=== PATIENT | female | born 1950 | race Caucasian/White ===

== ENCOUNTER → 2018-07-19 09:24 | Outpatient (CLI) | payer MEDICARE, OTHER, SELFPAY | PROVIDERS: Visit Provider Student in an Organized Health Care Education/Training Program | DX: E07.9 Disorder of thyroid, unspecified (principal); Z78.0 Asymptomatic menopausal state | CPT/HCPCS: 77080 ==

== ENCOUNTER → 2018-10-23 09:50 | Outpatient (CLI) | payer MEDICARE, OTHER, SELFPAY ==
--- NOTE | 2018-10-23 | DI.US.S_ITS ---
PROCEDURE: US THYROID INDICATIONS: NODULE TECHNIQUE: Real-time scanning was performed of the thyroid gland, with image documentation. COMPARISON: [facility], [place], BIOPSY LOCALIZATION/ASPIRATION, 02/08/2016, 13:00. [facility], [place], THYROID, 01/04/2016, 14:09. FINDINGS: Thyroid appears diffusely heterogeneous Right: Thyroid lobe measures 3.6 x 1.5 x 1.6 cm, and is homogeneous in echotexture. Left: Thyroid lobe measures 4.1 x 1.1 0.6 cm, and is homogenous in echotexture. Isthmus: 3-4 mm thick. Nodule number: 1 Location: Inferior left lobe Size: 1.4 x 1.2 x 1.6 cm. (previously 3.0 x 2.1 x 1.0 cm) Composition: Predominantly solid Echogenicity: Hypoechoic Shape: wider than tall. Margins: Ill-defined Echogenic foci: None Total points: 4 ACR TI-RADS category: Moderately suspicious IMPRESSION: Decrease in size of previously sampled inferior left lobe thyroid nodule since 02/08/16. Diffusely heterogeneous thyroid raising the possibility of nonspecific thyroiditis. Please correlate with biochemical data. ACR TI-RADS definitions and recommendations: TI-RADS 1 (benign): 0 points. FNA not needed. TI-RADS 2 (not suspicious): 2 points. FNA not needed. TI-RADS 3 (mildly suspicious): 3 points. * FNA if 2.5 cm or larger, follow up if 1.5 cm or larger (at 1, 3, and 5 years). TI-RADS 4 (moderately suspicious): 4-6 points. * FNA if 1.5 cm or larger, follow up if 1 cm or larger (at 1, 2, 3, and 5 years). TI-RADS 5 (highly suspicious): 7 points or more. * FNA if 1 cm or larger, follow up if 0.5 cm or larger (every year for 5 years). Dictated by: Ethan Guevara M.D. on 10/23/2018 at 17:55 Approved by: Ethan Guevara M.D. on 10/23/2018 at 17:58
== END ==
PROVIDERS: PCP Student in an Organized Health Care Education/Training Program; Visit Provider Student in an Organized Health Care Education/Training Program
DX: E04.1 Nontoxic single thyroid nodule (principal)
CPT/HCPCS: 76536

== ENCOUNTER → 2018-11-26 15:29 | Outpatient (CLI) | payer MEDICARE, OTHER, SELFPAY ==
--- NOTE | 2018-11-26 | DI.MRI.S_ITS ---
PROCEDURE: MR ABDOME PELVIS WWO CON INDICATIONS: PELVIC MASS ON CT-ANGIO DONE AT [facility] TECHNIQUE: Coronal HASTE, sagittal breath-hold T2 FSE; axial 2-D FLASH in- and [id number], axial T1 FSE with fat saturation through the pelvis. Optional long- and short-axis uterine nonbreath-hold T2 FSE through the uterus. Sagittal or axial dynamic VIBE during IV gadolinium administration; postgadolinium axial and sagittal VIBE/2-D FLASH with fat saturation from the iliac crests to the symphysis. COMPARISON: [facility], CT, CT ANGIO CHEST, 10/10/2018, 10:31. [facility] , CT, KUB - CT (PNL), 07/29/2009, 7:11. [facility], CT, CT ANGIO ABDOMEN PELVIS, 11/02/2018, 14:23. FINDINGS: Image quality: Excellent. Uterus: Uterus is surgically absent. Adnexa: A uniloculated, thin-walled, cystic lesion measuring 2.0 x 1.6 x 1.8 cm is present in the right posterior hemipelvis along the internal iliac vasculature. It demonstrates homogeneous hypointense T1, and hyperintense T2 signal, and there is no detectable enhancement. In the left posterior adnexa, there is a multiloculated cystic mass demonstrating similar internal signal characteristics, demonstrating trace enhancement of cyst heard postcontrast. No mural nodularity or solid component. It measures about 5.4 x 2.6 x 3.4 cm in its greatest diameters. No suspicious enhancing adenopathy or solid enhancing pelvic masses. No free pelvic fluid. Urinary system: The urinary bladder is normal with respect wall thickness and morphology. No enhancing masses. Distal ureters are nondilated. Abdomen: The liver is normal in size with a smooth margin, and contains multiple, widely scattered cystic structures ranging in size from a few millimeters to 3.4 cm. Hemangioma or portosystemic shunt is seen peripherally in the lateral right hepatic lobe. Tiny cysts present in the cranial and caudal tips of the spleen and in each kidney. Normal adrenal glands, pancreas, and kidneys. Retroperitoneal vessels and ureters are normal. No retroperitoneal mass or adenopathy. Mild sigmoid diverticulosis. Stomach and visible bowel loops are normal. Bones and soft tissues: The visible marrow signal is normal without suspicious enhancing lesion. Incidental note is made of slightly rounded, prominent nodule/lymph node in the right low axilla or right breast axillary tail tissue measuring about 1.2 cm in short axis. (Series 32 image 26). IMPRESSION: 1. Bilateral posterior adnexal cystic masses. No overtly suspicious features other than these have arisen since the prior study from 2008. The left may be associated with residual left ovarian tissue. The right is more cranial in the pelvis than expected for right ovarian tissue. The differential diagnosis includes residual ovarian follicles, benign ovarian serous cystadenoma, pelvic inclusion cyst, lymphoceles, and much less likely neoplasm. Followup in 6 months is recommended to document stability or assess for resolution. 2. Lower axillary/right breast axillary tail nodule/lymph node, minimally increased in size compared to a prior chest CT. And this may be reactive to an occult infectious process. Clinical correlation recommended. Consider mammogram if not recently performed. 3. Multiple liver, renal, and splenic cysts. 4. Hysterectomy. Dictated by: Yamilet Ahmadi M.D. on 11/27/2018 at 9:51 Approved by: Yamilet Ahmadi M.D. on 11/27/2018 at 11:03
== END ==
PROVIDERS: PCP Student in an Organized Health Care Education/Training Program; Visit Provider Student in an Organized Health Care Education/Training Program
DX: R19.09 Other intra-abdominal and pelvic swelling, mass and lump (principal); R59.0 Localized enlarged lymph nodes; K76.89 Other specified diseases of liver; N28.1 Cyst of kidney, acquired; D73.4 Cyst of spleen; Z90.710 Acquired absence of both cervix and uterus
CPT/HCPCS: 72197; A9579

== ENCOUNTER → 2018-12-13 13:52 | Outpatient (CLI) | payer MEDICARE, OTHER, SELFPAY ==
--- NOTE | 2018-12-13 | DI.MG.S_ITS ---
BILATERAL DIGITAL DIAGNOSTIC MAMMOGRAM 3D/2D: 12/13/2018 CLINICAL: Finding from recent MRI exam. Left and right axillary tail nodule. Comparison is made to exams dated: 03/19/2018 mammogram, 02/17/2017 mammogram, and 11/24/2015 mammogram - [facility]. The tissue of both breasts is heterogeneously dense. This may lower the sensitivity of mammography. No significant masses, calcifications, or other findings are seen in either breast. IMPRESSION: INCOMPLETE: NEEDS ADDITIONAL IMAGING EVALUATION There is no abnormality seen in either breast to correspond with the area of clinical concern, however, right axillary ultrasound is recommended. This exam was interpreted at Station ID: [id number]. NOTE: For mammograms, a report in lay terms will be sent to the patient. Approximately 15% of breast malignancies will not be visualized mammographically. In the management of a palpable breast mass, a negative mammogram must not discourage biopsy of a clinically suspicious lesion. SUMMARY: The recommended ultrasound is scheduled to immediately follow this examination. Electronically Signed By: Kenton Wilson M.D. at/:12/13/2018 16:12:52 copy to: GARRET SONG ACR BI-RADS Category 0: Incomplete [id number]
--- NOTE | 2018-12-13 | DI.US.S_ITS ---
PROCEDURE: US PELVIC COMPLETE INDICATIONS: Other intra-abdominal and pelvic swelling TECHNIQUE: Real-time scanning was performed of the pelvic organs, with image documentation. Additional endovaginal scanning was necessary due to incomplete visualization of the adnexal and endometrial structures by transabdominal scanning. COMPARISON: [facility], CT, CT ANGIO ABDOMEN PELVIS, 11/02/2018, 14:23. FINDINGS: Transabdominal scanning: Limited scanning through the kidneys shows no hydronephrosis. No pathologic free abdominal or pelvic fluid. Endovaginal scanning: Uterus: Prior hysterectomy. Cervical stump present with probable complex nabothian cysts. Ovaries: Ovaries are surgically absent by history. Within the left adnexa there is a multiloculated, irregular and thick walled complex mass similar to mass seen on prior CT scan measuring 5.3 x 2.2 x 3.0 cm. No definitive ovarian tissue is visualized. Within the right adnexa, a rounded simple appearing cystic mass is present measuring 1.9 x 1.5 x 1.6 cm and no definitive ovarian tissue is seen. IMPRESSION: 1. Multiloculated, complex left adnexal mass measuring up to 5.3 cm similar to prior CT scan. Neoplastic process cannot be excluded and gynecologic consultation is recommended. if indicated, pre and post contrast gynecologic protocol MRI could be performed for further assessment. 2. Simple appearing cystic mass within the right adnexa measuring up to 1.9 cm. Dictated by: Duong Esqueda A Interpreted: Abi Foley MD on 12/13/2018 at 17:12 Approved by: Abi Foley MD, PhD on 12/13/2018 at 17:35
--- NOTE | 2018-12-13 | DI.US.S_ITS ---
ULTRASOUND OF RIGHT BREAST: 12/13/2018 CLINICAL: Additional evaluation requested from prior study. Patient with history of right Cheyanne syndrome. Status right explantation of remote right silicone breast implant. Comparison is made to exams dated: 12/13/2018 mammogram - [facility], 03/19/2018 mammogram, 02/17/2017 mammogram, and 11/24/2015 mammogram - [facility]. Real-time ultrasound of the right breast was performed. Numerous prominent right axillary lymph nodes are again noted. There are echogenic central fatty ryan with associated 'snowstorm' shadowing compatible with silicone deposition from prior silicone implant. The cortex remains thin and uniform. Only a few of these lymph nodes demonstrate this finding. The remaining appear normal. No other suspicious mass or lymphadenopathy. IMPRESSION: BENIGN Benign right axillary lymph nodes with changes compatible with prior silicone deposition. These have been previously biopsied and were benign. Recommend return to annual screening mammography. There is no sonographic evidence of malignancy. A 1 year screening mammogram is recommended. This exam was interpreted at Station ID: [id number]. Electronically Signed By: Kenton arroyo/tequila:12/14/2018 13:44:51 copy to: GARRET SONG letter sent: Normal Exam Ultrasound BI-RADS: 2 Benign
== END ==
PROVIDERS: PCP Student in an Organized Health Care Education/Training Program; Visit Provider Student in an Organized Health Care Education/Training Program
DX: R91.8 Other nonspecific abnormal finding of lung field (principal); N63.32 Unspecified lump in axillary tail of the left breast; N63.31 Unspecified lump in axillary tail of the right breast; R19.09 Other intra-abdominal and pelvic swelling, mass and lump
CPT/HCPCS: 76642; 76856; 77066; G0279

== ENCOUNTER → 2019-07-05 08:33 | Outpatient (CLI) | payer MEDICARE, OTHER, SELFPAY ==
--- NOTE | 2019-07-05 | DI.US.S_ITS ---
PROCEDURE: US PELVIC COMPLETE INDICATIONS: FOLLOW UP PELVIC MASS TECHNIQUE: Real-time scanning was performed of the pelvic organs, with image documentation. Additional endovaginal scanning was necessary due to incomplete visualization of the adnexal and endometrial structures by transabdominal scanning. COMPARISON: [facility], [place], [place] PET CT BONE WHOLE BODY, 01/30/2019, 14:32. [facility], [place], US PELVIC COMPLETE, 12/13/2018, 15:59. FINDINGS: Transabdominal scanning: Limited scanning through the kidneys shows no hydronephrosis. No pathologic free abdominal or pelvic fluid. Endovaginal scanning: Uterus: Surgically absent. Ovaries: Ovaries are surgically absent. Multiloculated irregular cystic structure within the left adnexa decreased in size now measure 3.1 x 2.1 x 1.9 cm compared to 5.3 x 2.2 x 3.0 cm on prior examination. Simple cystic structure within the right adnexa decreased in size now measuring 1.2 x 1.0 x 1.1 cm compared to 1.9 x 1.5 x 1.6 cm on prior exam. IMPRESSION: Interval decrease in size of multiloculated left adnexal cystic structure as well as the simple right adnexal cyst when compared to prior examination. Dictated by: Duong Esqueda [facility] Interpreted: Elvis Gao MD on 07/05/2019 at 11:03 Approved by: Elvis Gao M.D. on 07/05/2019 at 15:18
== END ==
PROVIDERS: Family Provider Obstetrics & Gynecology Gynecologic Oncology; PCP Student in an Organized Health Care Education/Training Program; Visit Provider Student in an Organized Health Care Education/Training Program
DX: R19.00 Intra-abdominal and pelvic swelling, mass and lump, unspecified site (principal); N94.89 Other specified conditions associated with female genital organs and menstrual cycle; Z90.722 Acquired absence of ovaries, bilateral
CPT/HCPCS: 76830; 76856

== ENCOUNTER → 2019-08-13 11:46 | Outpatient (ROUT) | payer MEDICARE, OTHER, SELFPAY ==
[2019-08-13 12:04] LABS: Prothrombin Time 23.2 SECONDS (10.1-12.7)
== END ==
PROVIDERS: Family Provider Obstetrics & Gynecology Gynecologic Oncology; PCP Student in an Organized Health Care Education/Training Program; Visit Provider Student in an Organized Health Care Education/Training Program
DX: I48.91 Unspecified atrial fibrillation (principal)
CPT/HCPCS: 85610

== ENCOUNTER → 2019-10-14 13:39 | Outpatient (ROUT) | payer MEDICARE, OTHER, SELFPAY ==
[2019-10-14 14:07] LABS: INR 1.8 (0.9-1.3); Prothrombin Time 20.9 SECONDS (10.1-12.7)
== END ==
PROVIDERS: Family Provider Obstetrics & Gynecology Gynecologic Oncology; PCP Student in an Organized Health Care Education/Training Program; Visit Provider Student in an Organized Health Care Education/Training Program
DX: I48.91 Unspecified atrial fibrillation (principal)
CPT/HCPCS: 85610

== ENCOUNTER → 2020-01-16 09:01 | Outpatient (ROUT) | payer MEDICARE, OTHER, SELFPAY ==
[2020-01-16 09:13] LABS: INR 1.8 (0.9-1.3); Prothrombin Time 20.5 SECONDS (10.1-12.7)
== END ==
PROVIDERS: Family Provider Obstetrics & Gynecology Gynecologic Oncology; PCP Student in an Organized Health Care Education/Training Program; Visit Provider Student in an Organized Health Care Education/Training Program
DX: I48.91 Unspecified atrial fibrillation (principal)
CPT/HCPCS: 85610

== ENCOUNTER → 2020-02-25 09:10 | Outpatient (ROUT) | payer MEDICARE, OTHER, SELFPAY ==
[2020-02-25 09:27] LABS: INR 1.9 (0.9-1.3); Prothrombin Time 21.6 SECONDS (10.1-12.7)
== END ==
PROVIDERS: Family Provider Obstetrics & Gynecology Gynecologic Oncology; PCP Student in an Organized Health Care Education/Training Program; Visit Provider Student in an Organized Health Care Education/Training Program
DX: Z79.01 Long term (current) use of anticoagulants (principal); I48.91 Unspecified atrial fibrillation
CPT/HCPCS: 85610

== ENCOUNTER → 2020-04-21 11:44 | Outpatient (ROUT) | payer MEDICARE, OTHER, SELFPAY ==
[2020-04-21 11:52] LABS: Prothrombin Time 22.9 SECONDS (10.1-12.7)
== END ==
PROVIDERS: Family Provider Obstetrics & Gynecology Gynecologic Oncology; PCP Student in an Organized Health Care Education/Training Program; Visit Provider Student in an Organized Health Care Education/Training Program
DX: I48.91 Unspecified atrial fibrillation (principal); Z79.01 Long term (current) use of anticoagulants
CPT/HCPCS: 85610

== ENCOUNTER → 2020-06-03 11:51 | Outpatient (ROUT) | payer MEDICARE, OTHER, SELFPAY ==
[2020-06-03 12:10] LABS: INR 1.9 (0.9-1.3); Prothrombin Time 22.2 SECONDS (10.1-12.7)
== END ==
PROVIDERS: Family Provider Obstetrics & Gynecology Gynecologic Oncology; PCP Student in an Organized Health Care Education/Training Program; Visit Provider Student in an Organized Health Care Education/Training Program
DX: I48.91 Unspecified atrial fibrillation (principal); Z79.01 Long term (current) use of anticoagulants
CPT/HCPCS: 85610

== ENCOUNTER → 2020-06-29 11:02 | Outpatient (CLI) | payer MEDICARE, OTHER, SELFPAY ==
--- NOTE | 2020-06-29 | DI.US.S_ITS ---
PROCEDURE: US PELVIC COMPLETE INDICATIONS: Intra-abdominal and pelvic swelling, mass and lump TECHNIQUE: Real-time scanning was performed of the pelvic organs, with image documentation. Additional endovaginal scanning was necessary due to incomplete visualization of the adnexal and endometrial structures by transabdominal scanning. COMPARISON: [facility], , US PELVIC COMPLETE, 12/13/2018, 15:59. [facility], , US PELVIC COMPLETE, 07/05/2019, 9:07. FINDINGS: Transabdominal scanning: Limited scanning through the kidneys shows no hydronephrosis. No pathologic free abdominal or pelvic fluid. Endovaginal scanning: Uterus: Prior hysterectomy. Ovaries: No significant interval change in appearance or size of bilobed cystic mass within the left adnexa measuring 3.2 x 1.6 x 2.4 cm compared to 3.1 x 2.1 x 1.9 cm on prior examination. IMPRESSION: No significant interval change in bilobed cystic mass within the left adnexa. Continued sonographic surveillance is recommended. Dictated by: Duong JOSEPH Interpreted: Tiffani Durham MD on 06/29/2020 at 13:42 Approved by: Tiffani Durham M.D. on 06/29/2020 at 13:50
== END ==
PROVIDERS: Family Provider Obstetrics & Gynecology Gynecologic Oncology; PCP Student in an Organized Health Care Education/Training Program; Referring Provider Student in an Organized Health Care Education/Training Program; Visit Provider Student in an Organized Health Care Education/Training Program
DX: R19.00 Intra-abdominal and pelvic swelling, mass and lump, unspecified site (principal); Z90.710 Acquired absence of both cervix and uterus
CPT/HCPCS: 76830; 76856

== ENCOUNTER → 2020-07-28 15:42 | Outpatient (ROUT) | payer MEDICARE, OTHER, SELFPAY ==
[2020-07-28 16:01] LABS: INR 1.5 (0.9-1.3); Prothrombin Time 17.8 SECONDS (10.1-12.7)
== END ==
PROVIDERS: Family Provider Obstetrics & Gynecology Gynecologic Oncology; PCP Student in an Organized Health Care Education/Training Program; Visit Provider Student in an Organized Health Care Education/Training Program
DX: I48.91 Unspecified atrial fibrillation (principal); Z79.01 Long term (current) use of anticoagulants
CPT/HCPCS: 85610

== ENCOUNTER → 2020-08-21 10:34 | Outpatient (ROUT) | payer MEDICARE, OTHER, SELFPAY ==
[2020-08-21 11:22] LABS: INR 2.5 (0.9-1.3); Prothrombin Time 28.1 SECONDS (10.1-12.7)
== END ==
PROVIDERS: Family Provider Obstetrics & Gynecology Gynecologic Oncology; PCP Student in an Organized Health Care Education/Training Program; Visit Provider Student in an Organized Health Care Education/Training Program
DX: I48.91 Unspecified atrial fibrillation (principal); Z79.01 Long term (current) use of anticoagulants
CPT/HCPCS: 85610

== ENCOUNTER → 2020-10-05 10:45 | Outpatient (ROUT) | payer MEDICARE, OTHER, SELFPAY ==
[2020-10-05 11:00] LABS: Prothrombin Time 34.2 SECONDS (10.1-12.7)
== END ==
PROVIDERS: Family Provider Obstetrics & Gynecology Gynecologic Oncology; PCP Student in an Organized Health Care Education/Training Program; Visit Provider Student in an Organized Health Care Education/Training Program
DX: I48.91 Unspecified atrial fibrillation (principal); Z79.01 Long term (current) use of anticoagulants
CPT/HCPCS: 85610

== ENCOUNTER → 2020-11-03 10:44 | Outpatient (ROUT) | payer MEDICARE, OTHER, SELFPAY ==
[2020-11-03 11:09] LABS: INR 2.3 (0.9-1.3); Prothrombin Time 26.8 SECONDS (10.1-12.7)
== END ==
PROVIDERS: Family Provider Obstetrics & Gynecology Gynecologic Oncology; PCP Student in an Organized Health Care Education/Training Program; Visit Provider Student in an Organized Health Care Education/Training Program
DX: I48.91 Unspecified atrial fibrillation (principal); Z79.01 Long term (current) use of anticoagulants
CPT/HCPCS: 85610

== ENCOUNTER → 2021-01-25 10:48 | Outpatient (ROUT) | payer MEDICARE, OTHER, SELFPAY ==
[2021-01-25 11:02] LABS: Prothrombin Time 23.2 SECONDS (10.1-12.7)
== END ==
PROVIDERS: Family Provider Obstetrics & Gynecology Gynecologic Oncology; PCP Student in an Organized Health Care Education/Training Program; Visit Provider Student in an Organized Health Care Education/Training Program
DX: I48.91 Unspecified atrial fibrillation (principal); Z79.01 Long term (current) use of anticoagulants
CPT/HCPCS: 85610

== ENCOUNTER → 2021-02-08 15:00 | Outpatient (CLI) | payer MEDICARE, OTHER, SELFPAY ==
--- NOTE | 2021-02-08 | DI.US.S_ITS ---
PROCEDURE: US EXTREMITY NONVASC LOWER RT INDICATIONS: GROIN LUMPS TECHNIQUE: Real-time scanning was performed of the right mid/lateral thigh , with image documentation. COMPARISON: None. FINDINGS: In an area of palpable abnormality in the right mid/lateral thigh there is a 6 x 6 x 4 millimeter hyperechoic foci with ill-defined borders. No fluid collection. IMPRESSION: Lipoma of the right mid/lateral thigh, possibly with some fat necrosis. Dictated by: Clarence Little M.D. on 02/08/2021 at 16:25 Approved by: Clarence Little M.D. on 02/08/2021 at 16:27
--- NOTE | 2021-02-08 | DI.US.S_ITS ---
PROCEDURE: US EXTREMITY NONVASC LOWER LT INDICATIONS: Localized swelling, mass and lump TECHNIQUE: Real-time scanning was performed of the left thigh , with image documentation. COMPARISON: None. FINDINGS: In the areas of concern of the left thigh no solid or cystic mass is identified. There are some lobular areas of fat which could be lipomas. IMPRESSION: Possible lipomas versus is normal subcutaneous fat. No solid or cystic mass. Dictated by: Clarence Little M.D. on 02/08/2021 at 16:21 Approved by: Clarence Little M.D. on 02/08/2021 at 16:22
== END ==
PROVIDERS: Family Provider Obstetrics & Gynecology Gynecologic Oncology; PCP Student in an Organized Health Care Education/Training Program; Referring Provider Student in an Organized Health Care Education/Training Program; Visit Provider Student in an Organized Health Care Education/Training Program
DX: R22.9 Localized swelling, mass and lump, unspecified (principal)
CPT/HCPCS: 76882

== ENCOUNTER → 2021-03-12 11:35 | Outpatient (ROUT) | payer MEDICARE, OTHER, SELFPAY ==
[2021-03-12 11:55] LABS: INR 2.9 (0.9-1.3); Prothrombin Time 34.3 SECONDS (10.1-12.7)
== END ==
PROVIDERS: Family Provider Obstetrics & Gynecology Gynecologic Oncology; PCP Student in an Organized Health Care Education/Training Program; Visit Provider Student in an Organized Health Care Education/Training Program
DX: I48.91 Unspecified atrial fibrillation (principal); Z79.01 Long term (current) use of anticoagulants
CPT/HCPCS: 85610

== ENCOUNTER → 2021-05-17 11:25 | Outpatient (ROUT) | payer MEDICARE, OTHER, SELFPAY ==
[2021-05-17 11:40] LABS: INR 3.1 (0.9-1.3); Prothrombin Time 35.8 SECONDS (10.1-12.7)
== END ==
PROVIDERS: Family Provider Obstetrics & Gynecology Gynecologic Oncology; PCP Student in an Organized Health Care Education/Training Program; Visit Provider Student in an Organized Health Care Education/Training Program
DX: Z79.01 Long term (current) use of anticoagulants (principal)
CPT/HCPCS: 85610

== ENCOUNTER → 2021-07-05 13:57 | Outpatient (ROUT) | payer MEDICARE, OTHER, SELFPAY ==
[2021-07-05 14:15] LABS: Prothrombin Time 35.5 SECONDS (10.1-12.7)
== END ==
PROVIDERS: Family Provider Obstetrics & Gynecology Gynecologic Oncology; PCP Student in an Organized Health Care Education/Training Program; Visit Provider Student in an Organized Health Care Education/Training Program
DX: Z79.01 Long term (current) use of anticoagulants (principal)
CPT/HCPCS: 85610

== ENCOUNTER → 2021-07-15 12:48 | Outpatient (CLI) | payer MEDICARE, OTHER, SELFPAY ==
--- NOTE | 2021-07-15 12:49 | DI.US.S_ITS ---
PROCEDURE: US PELVIC COMPLETE INDICATIONS: PELVIC MASS 1 YEAR FOLLOW UP. HISTORY OF FULL HYSTERECTOMY. TECHNIQUE: Real-time scanning was performed of the pelvic organs, with image documentation. Additional endovaginal scanning was necessary due to incomplete visualization of the adnexal and endometrial structures by transabdominal scanning. COMPARISON: [facility], PELVIC COMPLETE, 06/29/2020, 11:53. FINDINGS: Uterus: Uterus has been removed. Ovaries: Ovaries have been removed. Anechoic focus is present with septations in the left adnexa measuring 2.2 x 1.1 x 1.6 cm compared to 3.2 x 2.4 x 1.6 cm. Other: No pathologic free abdominal or pelvic fluid. IMPRESSION: Mildly decreased size of septated left adnexal cyst. Dictated by: Teresa Coto M.D. on 07/15/2021 at 16:52 Approved by: Teresa Coto M.D. on 07/15/2021 at 16:55
== END ==
PROVIDERS: Family Provider Obstetrics & Gynecology Gynecologic Oncology; PCP Student in an Organized Health Care Education/Training Program; Referring Provider Student in an Organized Health Care Education/Training Program; Visit Provider Student in an Organized Health Care Education/Training Program
DX: Z09 Encounter for follow-up examination after completed treatment for conditions other than malignant neoplasm (principal); Z87.898 Personal history of other specified conditions; N94.89 Other specified conditions associated with female genital organs and menstrual cycle; Z90.710 Acquired absence of both cervix and uterus
CPT/HCPCS: 76830; 76856

== ENCOUNTER → 2022-01-17 09:25 | Outpatient (CLI) | payer MEDICARE, OTHER, SELFPAY ==
[2022-01-17 13:24] LABS: COVID19 -Nasal RAPID Negative (Negative)
== END ==
PROVIDERS: Family Provider Obstetrics & Gynecology Gynecologic Oncology; PCP Student in an Organized Health Care Education/Training Program; Visit Provider Family Medicine Sleep Medicine
DX: Z20.822 Contact with and (suspected) exposure to COVID-19 (principal)
CPT/HCPCS: 87635; C9803

== ENCOUNTER 2022-01-18 12:42 | Day surgery (SDC) | payer MEDICARE, OTHER, SELFPAY ==
--- NOTE | 2022-01-18 11:54 | P.HP_ITS ---
History of Present Illness History of Present Illness Date Patient Seen: 01/18/22 Chief complaint: SDC Narrative: 71 year old female comes in today for consideration of a screening colonoscopy. Last colonoscopy on 02/21/17 indicated for a strong family history of colon cancer. Her mother had colon polyps at age 40 with frequent screening throughout her life with no development of cancer. She has had one brother at age 50 from colon cancer. Her other brother currently has anal cancer. Maternal grandfather also had colon cancer. 2017 findings showed no polyps or lesions. Operative note did mention a very acute junction between the sigmoid and descending colon that was difficult to navigate. Diverticulosis limited to the sigmoid region. Grade 2 internal hemorrhoids seen. Prior to that had a colonoscopy on 12/12/2012, significant for 3 rectosigmoid polyps, all hype rplastic. Prior to that, had a colonoscopy in 2010 significant for a serrated adenoma of the cecum. Also had a colonoscopy in 2005 significant for 1 polyp, pathology not available at time of dictation. First colonoscopy was in 1999, patient reports it was significant for pre cancerous lesions. Currently, there have been no lower GI symptoms suggesting disease such as change in bowel habits, bleeding, abdominal pain or anemia. Overall health issues have been stable, including no major cardiac events for at least 6 weeks. PCP: Dr. 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 Prostate cancer Mother: @ 84 pancreatic ca and A-fib Siblings: Trent- @ 50- colon cancer [place], anal cancer MGF: colon cancer Social History: Marital Status: Children: Meaghan- healthy Occupation: retired middle school sports coach Household Members: Arsenio- Education: 2 years college Patient History Medical History (Updated 01/17/22 @ 18:13 by Oksana Pal RN) Hypothyroid Meds Home Medications and Allergies Home Medications Medication Instructions Recorded Confirmed Type Acetaminophen/Diphenhydramin 1 cap PO HS #0 12/12/11 History (#EXCEDRIN PM 500 MG-25 MG) levothyroxine 25 mcg tablet 25 mcg PO QAM #0 02/21/17 01/18/22 History (Synthroid) warfarin 2 mg tablet 2 mg PO DAILY 01/18/22 01/18/22 History Allergies Allergy/AdvReac Type Severity Reaction Status Date / Time ketorolac [KETOROLAC] Allergy Intermediate RASH Verified 01/18/22 13:31 codeine [CODEINE] AdvReac Intermediate GI Verified 01/18/22 13:31 meperidine [MEPERIDINE] AdvReac Mild GI Verified 01/18/22 13:31 Review of Systems Review of Systems Narrative: All remaining ROS were reviewed and negative except as addressed. Exam Narrative Exam Narrative: GENERAL: Alert and oriented, appearing stated age and in no acute distress. HEENT: Head normocephalic/atraumatic. Extraocular movements intact. LUNGS: Clear to ausculation bilaterally, no wheezes, rhonchi or rales. CV: Normal S1 and S2 with regular rate and rhythm, no audible murmurs, rubs or gallops. ABDOMEN: Soft, non-tender, non-distended, no organomegaly. Positive bowel sounds. EXTREMITIES: No clubbing, cyanosis, or edema. NEURO: Cranial nerves II through XII grossly intact, no focal deficits. PSYCH: Alert and oriented x 3. SKIN: No concerning lesions. Assessment & Plan Assessment & Plan narrative: 1. History of colon polyps 2. Family history of colon cancer and colon polyps 3. Screening for colon cancer Plan for colonoscopy. The nature and character of the procedure as well as anticipated results were discussed. The possibility of not completing the procedure was also discussed. Possible complications including aspiration pneumonia, bleeding, perforation and reaction to medications either for sedation or preparation and missed lesions were discussed. Questions were answered and proceeding to the colonoscopy was elected. Informed consent signed. I sincerely appreciate the referral allowing me to participate in this patient's care. Please contact me with any questions or concerns.
--- NOTE | 2022-01-18 12:11 | P.OP.COLON_ITS ---
Operative Date/Time/Diagnoses Date of procedure: 01/18/22 Procedure Notes SCOAP/Timeout: 2:33 p.m. Procedure in detail: ENDOSCOPIST: Valeria Calero MD Sedation RN: Keyla Gallardo RN Sedation start time: 2:34 p.m. Sedation end time: 2:50 p.m. PROCEDURE: Colonoscopy INDICATIONS: 1. History of colon polyps 2. Family history of colon cancer 3. Screening for colon cancer MEDICATION: Levsin 0.125 mg sublingual, incremental doses of Versed and fentanyl until appropriate level sedation achieved. ASA CLASS: 2 CECAL WITHDRAWAL TIME: 6 minutes COMPLICATIONS: None. EXTENT OF PROCEDURE: Cecum. QUALITY OF PREP: Good with portions of liquid stool. PROCEDURE: Prior to insertion of the colonoscope, a digital rectal examination was accomplished with circumferential palpation of the distal rectal mucosa without significant findings being noted. The high-definition pediatric colonoscope was passed into the rectum in the usual fashion and advanced over to the cecum without difficulty. The ileocecal valve, appendiceal stoma, and medial wall all could be inspected and no abnormalities were seen. ASCENDING COLON: As the colonoscope was withdrawn, care was taken to expose and inspect the haustral folds and no abnormalities were seen. HEPATIC FLEXURE: Normal, no polyps, diverticula or other abnormalities. TRANSVERSE COLON: Normal, no polyps, diverticula or other abnormalities. DESCENDING COLON: Normal, no polyps, diverticula or other abnormalities. SIGMOID COLON: Minor diverticulosis, otherwise, normal, no polyps, or other abnormalities. RECTUM: Normal. J maneuver was produced. There was no significant perianal di sease. The J maneuver was broken. The remainder of the rectum was inspected and there was minor external hemorrhoid disease. The scope was withdrawn. IMPRESSION: 1. Normal colonoscopy 2. Diverticulosis, left-sided 3. External hemorrhoid disease, minor PLAN: 1. Secondary to family history, repeat colonoscopy in 5 years. The possibility of a missed lesion including a malignancy has been discussed with the patient previously. Potential alarm symptoms have been discussed and should be reported immediately.
[2022-01-18 13:35] VITALS: BP 122/83; PULSE 98; RESP 16; TEMP 36.3; O2SAT 96; BMI 25.0
[2022-01-18] MEDS: LACTATED RINGERS 1,000 ML 200 ML IV (13:42)
[2022-01-18] MEDS: HYOSCYAMINE 0.125 MG TABLET PO (13:46)
[2022-01-18] MEDS: fentaNYL 250 MCG/5 ML INJ 100 MCG IV (14:34)
[2022-01-18] MEDS: MIDAZOLAM 5 MG/5 ML VIAL 4 MG IV (14:34)
[2022-01-18 15:00] VITALS: BP 106/68; PULSE 87; RESP 16; TEMP 36.4; O2SAT 96
[2022-01-18 15:05] VITALS: BP 105/66; PULSE 87; RESP 15; O2SAT 96
[2022-01-18 15:10] VITALS: BP 108/65; PULSE 87; RESP 15; O2SAT 94
[2022-01-18 15:15] VITALS: BP 118/64; PULSE 80; RESP 15; O2SAT 96
[2022-01-18 15:19] VITALS: BP 111/70; PULSE 84; RESP 15; O2SAT 96
== END 2022-01-18 15:23 | disposition home or self-care (01) ==
PROVIDERS: Family Provider Obstetrics & Gynecology Gynecologic Oncology; PCP Student in an Organized Health Care Education/Training Program; Referring Provider Student in an Organized Health Care Education/Training Program; Visit Provider Student in an Organized Health Care Education/Training Program
PROC: 0DJD8ZZ Inspection of Lower Intestinal Tract, Via Natural or Artificial Opening Endoscopic (ICD-10-PCS; CPT 45378; principal; 2022-01-18 14:30)
DX: Z12.11 Encounter for screening for malignant neoplasm of colon (principal); Z86.010 Personal history of colon polyps; Z80.0 Family history of malignant neoplasm of digestive organs; K57.30 Diverticulosis of large intestine without perforation or abscess without bleeding; K64.4 Residual hemorrhoidal skin tags
CPT/HCPCS: G0105; 85610; J2250; J3010

== ENCOUNTER → 2022-07-12 13:24 | Outpatient (CLI) | payer MEDICARE, OTHER, SELFPAY ==
[2022-07-12 14:55] LABS: Add Manual Diff / Slide Review NO; Basophils Absolute Auto 100 /uL (0-100); Basophils Percent Auto 0.7 % (0-2); Eosinophils Absolute Auto 100 /uL (0-450); Eosinophils Percent Auto 1.8 % (2-4); Hematocrit 42.3 % (36-46); Hemoglobin 14.3 g/dL (12.0-16.0); Lymphocytes Absolute Auto 2500 /uL (1100-4500); Mean Corpuscular HGB Conc 33.9 % (30-36); Mean Corpuscular Hemoglobin 31.1 PG (26-34); Mean Corpuscular Volume 91.7 fL (80-100); Monocytes Absolute Auto 400 /uL (0-900); Neutrophils Absolute Auto 4700 /uL (1500-7000); Neutrophils Percent Auto 60.5 % (50-75); Platelet Count 246 X10^3/uL (150-400); Red Blood Cell Count 4.61 X10^6/uL (4.0-5.2); Red Cell Distribution Width 13.8 % (11.6-14.8); White Blood Cell Count 7.8 X10^3/uL (4.5-11.0)
[2022-07-12 15:33] LABS: INR 2.2 (0.9-1.3); Prothrombin Time 25.6 SECONDS (10.1-12.7)
[2022-07-12 15:47] LABS: Alanine Aminotransferase 22 IU/L (<35); Albumin 4.3 g/dL (3.5-5.0); Albumin Globulin Ratio 1.5 (1.0-2.8); Alkaline Phosphatase 70 U/L (38-126); Aspartate Aminotransferase 27 IU/L (14-36); BUN Creatinine Ratio 23.6 (6-22); Bilirubin Total 0.4 mg/dL (0.2-1.3); Blood Urea Nitrogen 17 mg/dL (7-17); Calcium 9.2 mg/dL (8.4-10.2); Carbon Dioxide 27 mmol/L (22-32); Chloride 104 mmol/L (98-107); Cholesterol 231 mg/dL (140-199); Estimated Glomerular Filt Rate > 60 mL/min (>60); Globulin 2.9 g/dL (1.7-4.1); Glucose 101 mg/dL (80-110); HDL Cholesterol 48 mg/dL (40-60); HEMOLYSIS < 15 (0-50); LDL Cholesterol Calculated 134 mg/dL (<100); Potassium 4.3 mmol/L (3.4-5.1); Sodium 140 mmol/L (137-145); Total Protein 7.2 g/dL (6.3-8.2); Triglycerides 246 mg/dL (35-150)
[2022-07-12 16:15] LABS: Thyroid Stimulating Hormone 0.591 uIU/mL (0.47-4.68)
[2022-07-12 17:13] LABS: Vitamin D 25 Hydroxy (D3) 38.3 ng/mL (30.0-100.0)
== END ==
PROVIDERS: Family Provider Obstetrics & Gynecology Gynecologic Oncology; PCP Student in an Organized Health Care Education/Training Program; Referring Provider Student in an Organized Health Care Education/Training Program; Visit Provider Student in an Organized Health Care Education/Training Program
DX: E78.5 Hyperlipidemia, unspecified (principal); I48.0 Paroxysmal atrial fibrillation; E03.9 Hypothyroidism, unspecified
CPT/HCPCS: 36415; 80053; 80061; 82306; 84443; 85025; 85610

== ENCOUNTER → 2023-03-23 14:29 | Outpatient (ROUT) | payer MEDICARE, OTHER, SELFPAY ==
[2023-03-23 15:01] LABS: Prothrombin Time 23.5 SECONDS (10.1-12.7)
== END ==
PROVIDERS: Family Provider Obstetrics & Gynecology Gynecologic Oncology; PCP Student in an Organized Health Care Education/Training Program; Visit Provider Registered Nurse
DX: Z79.01 Long term (current) use of anticoagulants (principal)
CPT/HCPCS: 85610

== ENCOUNTER → 2023-04-07 12:32 | Outpatient (ROUT) | payer MEDICARE, OTHER, SELFPAY ==
[2023-04-07 12:42] LABS: INR 2.5 (0.9-1.3); Prothrombin Time 29.4 SECONDS (10.1-12.7)
== END ==
PROVIDERS: Family Provider Obstetrics & Gynecology Gynecologic Oncology; PCP Student in an Organized Health Care Education/Training Program; Visit Provider Registered Nurse
DX: Z79.01 Long term (current) use of anticoagulants (principal)
CPT/HCPCS: 85610

== ENCOUNTER → 2023-04-28 14:11 | Outpatient (ROUT) | payer MEDICARE, OTHER, SELFPAY ==
[2023-04-28 14:28] LABS: Prothrombin Time 22.7 SECONDS (10.1-12.7)
== END ==
PROVIDERS: Family Provider Obstetrics & Gynecology Gynecologic Oncology; PCP Student in an Organized Health Care Education/Training Program; Visit Provider Registered Nurse
DX: I48.91 Unspecified atrial fibrillation (principal)
CPT/HCPCS: 85610

== ENCOUNTER → 2023-05-02 13:32 | Outpatient (CLI) | payer MEDICARE, OTHER, SELFPAY ==
--- NOTE | 2023-05-02 | DI.US.S_ITS ---
PROCEDURE: US THYROID INDICATIONS: ACQUIRED HYPOTHYROIDISM TECHNIQUE: Real-time scanning was performed of the thyroid gland, with image documentation. COMPARISON: [facility], [place], THYROID, 01/04/2016, 14:09. FINDINGS: Right: Thyroid lobe measures 4.0 x 1.2 x 1.5 cm, and is heterogeneous in echotexture. Left: Thyroid lobe measures 4.0 x 1.4 x 1.1 cm, and is heterogeneous in echotexture. Isthmus: 1.3 mm thick. Nodule number: 1 Location: Left inferior Size: 1.0 x 0.8 x 0.8 cm; previously 1.4 x 1.2 x 1.6 cm. Composition: Solid Echogenicity: Hypoechoic Shape: wider than tall. Margins: Ill-defined Echogenic foci: None Total points: 4 ACR TI-RADS category: 4 Nodule number: 2 Location: Left mid Size: 0.6 x 0.5 x 0.5 cm; new. Composition: Solid Echogenicity: Hypoechoic Shape: wider than tall. Margins: Smooth Echogenic foci: None Total points: 4 ACR TI-RADS category: 4 IMPRESSION: 1. Heterogeneous thyroid gland bilaterally, likely sequelae of thyroiditis. 2. 2 small thyroid nodules. Nodule 1 has decreased in size since the last exam. Nodule 2 is new. Please see enclosed follow-up recommendation. ACR TI-RADS definitions and recommendations: TI-RADS 1 (benign): 0 points. FNA not needed. TI-RADS 2 (not suspicious): 2 points. FNA not needed. TI-RADS 3 (mildly suspicious): 3 points. * FNA if 2.5 cm or larger, follow up if 1.5 cm or larger (at 1, 3, and 5 years). TI-RADS 4 (moderately suspicious): 4-6 points. * FNA if 1.5 cm or larger, follow up if 1 cm or larger (at 1, 2, 3, and 5 years). TI-RADS 5 (highly suspicious): 7 points or more. * FNA if 1 cm or larger, follow up if 0.5 cm or larger (every year for 5 years). Dictated by: Roberto Victoria M.D. on 05/02/2023 at 16:25 Approved by: Roberto Victoria M.D. on 05/02/2023 at 16:29
== END ==
PROVIDERS: Family Provider Obstetrics & Gynecology Gynecologic Oncology; PCP Registered Nurse; Referring Provider Registered Nurse; Visit Provider Registered Nurse
DX: E03.9 Hypothyroidism, unspecified (principal); E04.2 Nontoxic multinodular goiter
CPT/HCPCS: 76536

== ENCOUNTER → 2023-05-10 09:09 | Outpatient (CLI) | payer SELFPAY | PROVIDERS: Family Provider Obstetrics & Gynecology Gynecologic Oncology; PCP Registered Nurse; Referring Provider Registered Nurse; Visit Provider Registered Nurse | DX: Z80.9 Family history of malignant neoplasm, unspecified (principal) | CPT/HCPCS: 36415; 99001 ==

== ENCOUNTER → 2023-07-10 11:52 | Outpatient (ROUT) | payer MEDICARE, OTHER, SELFPAY ==
[2023-07-10 12:01] LABS: INR 1.1 (0.9-1.3); Prothrombin Time 12.2 SECONDS (10.1-12.7)
== END ==
PROVIDERS: Family Provider Obstetrics & Gynecology Gynecologic Oncology; PCP Registered Nurse; Visit Provider Registered Nurse
DX: I48.91 Unspecified atrial fibrillation (principal)
CPT/HCPCS: 85610

== ENCOUNTER → 2023-08-01 09:42 | Outpatient (ROUT) | payer MEDICARE, OTHER, SELFPAY ==
[2023-08-01 10:13] LABS: INR 1.7 (0.9-1.3); Prothrombin Time 19.5 SECONDS (9.4-12.5)
== END ==
PROVIDERS: Family Provider Obstetrics & Gynecology Gynecologic Oncology; PCP Registered Nurse; Visit Provider Registered Nurse
DX: I48.91 Unspecified atrial fibrillation (principal)
CPT/HCPCS: 85610

== ENCOUNTER → 2023-08-09 09:39 | Outpatient (ROUT) | payer MEDICARE, OTHER, SELFPAY ==
[2023-08-09 09:57] LABS: INR 2.3 (0.9-1.3); Prothrombin Time 27.1 SECONDS (9.4-12.5)
== END ==
PROVIDERS: Family Provider Obstetrics & Gynecology Gynecologic Oncology; PCP Registered Nurse; Visit Provider Registered Nurse
DX: I48.91 Unspecified atrial fibrillation (principal)
CPT/HCPCS: 85610

== ENCOUNTER → 2023-10-09 09:40 | Outpatient (ROUT) | payer MEDICARE, OTHER, SELFPAY ==
[2023-10-09 09:52] LABS: INR 1.7 (0.9-1.3); Prothrombin Time 19.3 SECONDS (9.4-12.5)
== END ==
PROVIDERS: Family Provider Obstetrics & Gynecology Gynecologic Oncology; PCP Registered Nurse; Visit Provider Registered Nurse
DX: I48.91 Unspecified atrial fibrillation (principal)
CPT/HCPCS: 85610

== ENCOUNTER → 2023-10-26 12:15 | Outpatient (ROUT) | payer MEDICARE, OTHER, SELFPAY ==
[2023-10-26 12:41] LABS: INR 1.8 (0.9-1.3); Prothrombin Time 20.8 SECONDS (9.4-12.5)
== END ==
PROVIDERS: Family Provider Obstetrics & Gynecology Gynecologic Oncology; PCP Registered Nurse; Visit Provider Registered Nurse
DX: I48.91 Unspecified atrial fibrillation (principal)
CPT/HCPCS: 85610

== ENCOUNTER → 2023-12-11 16:36 | Outpatient (CLI) | payer MEDICARE, OTHER, SELFPAY ==
--- NOTE | 2023-12-11 16:37 | DI.US.S_ITS ---
PROCEDURE: US PELVIC COMPLETE INDICATIONS: LEFT ADNEXAL CYST FOLLOW UP TECHNIQUE: Real-time scanning was performed of the pelvic organs, with image documentation. Additional endovaginal scanning was necessary due to incomplete visualization of the adnexal and endometrial structures by transabdominal scanning. COMPARISON: [facility], [place], US PELVIC COMPLETE, 07/15/2021, 13:24. FINDINGS: Uterus: Surgically absent. Ovaries: The ovaries are surgically absent. Previous left adnexal cyst is no longer visualized, either surgically absent, resolved or not well seen. Other: No pathologic free abdominal or pelvic fluid. Debris is noted within the urinary bladder. IMPRESSION: 1. Status post hysterectomy and bilateral salpingo oophorectomy. 2. Previous left adnexal cyst is no longer visualized, either surgically absent, resolved or not seen. 3. Debris is noted within the urinary bladder, recommend correlation with cystitis. We strive to produce accurate, complete, and clear reports of imaging services. To assist us in improving patient care, this report was composed using standard report templates and voice recognition software. Therefore, it may contain abnormal punctuation, insertions and/or omissions. Occasional wrong-word or sound-alike substitutions may occur. Though we review the report and make efforts to correct it, we do recommend that the report be read carefully in proper context to recognize any text inaccuracies. Dictated by: Aristeo Jimenez M.D. on 12/12/2023 at 9:17 Approved by: Aristeo Jimenez M.D. on 12/12/2023 at 9:20
== END ==
LOC: US 16:37
PROVIDERS: Family Provider Obstetrics & Gynecology Gynecologic Oncology; PCP Registered Nurse; Referring Provider Registered Nurse; Visit Provider Registered Nurse
DX: N94.9 Unspecified condition associated with female genital organs and menstrual cycle (principal); Z90.710 Acquired absence of both cervix and uterus; Z90.722 Acquired absence of ovaries, bilateral
CPT/HCPCS: 76830; 76856

== ENCOUNTER → 2023-12-25 14:07 | Outpatient (CLI) | payer MEDICARE, OTHER, SELFPAY ==
--- NOTE | 2023-12-25 14:10 | DI.US.S_ITS ---
PROCEDURE: US THYROID INDICATIONS: NODULE TECHNIQUE: Real-time scanning was performed of the thyroid gland, with image documentation. COMPARISON: [facility], [place], US THYROID, 05/02/2023, 13:36. FINDINGS: Thyroid: Right lobe measures 4.4 x 1.2 x 1.2 cm. Left lobe measures 3.7 x 1.3 x 1.6 cm. Isthmus is 0.2 cm thick. Echotexture is heterogeneous. Nodule number: 1 Location: Left inferior thyroid, prior fine needle aspiration. Size: 1.0 x 0.8 x 0.9 cm, previously 1.4 x 1.2 x 1.6 cm Composition: Solid Echogenicity: Isoechoic Shape: wider than tall. Margins: Smooth Echogenic foci: None Total points: 3 ACR TI-RADS category: Mildly suspicious Additional smaller thyroid nodule not seen on this exam. IMPRESSION: Interval decrease in size of the left thyroid nodule. Correlate with prior fine needle aspiration results. ACR TI-RADS definitions and recommendations: TI-RADS 1 (benign): 0 points. FNA not needed. TI-RADS 2 (not suspicious): 2 points. FNA not needed. TI-RADS 3 (mildly suspicious): 3 points. * FNA if 2.5 cm or larger, follow up if 1.5 cm or larger (at 1, 3, and 5 years). TI-RADS 4 (moderately suspicious): 4-6 points. * FNA if 1.5 cm or larger, follow up if 1 cm or larger (at 1, 2, 3, and 5 years). TI-RADS 5 (highly suspicious): 7 points or more. * FNA if 1 cm or larger, follow up if 0.5 cm or larger (every year for 5 years). Approved by: Aman Singh M.D. on 12/25/2023 at 20:41
--- NOTE | 2023-12-25 14:10 | DI.RAD.S_ITS ---
PROCEDURE: XR DEXA AXIAL SKELETON INDICATIONS: Menopausal state; Nontoxic single thyroid COMPARISON: [facility], [place], XR DEXA AXIAL SKELETON, 07/19/2018, 10:08. FINDINGS: Lumbar Spine: Bone mineral density 0.961 g/cm2, T score -0.8. Left Hip: Bone mineral density 0.811 g/cm2, T score -1.1. Left Femoral Neck: Bone mineral density 0.684 g/cm2, T score -1.5. Right Hip: Bone mineral density is 0.838 g/cm2, T score -0.9. Right Femoral Neck: Bone mineral density 0.729 g/cm2, T score -1.1. Fracture Risk Calculation (when applicable): 10-year fracture risk of a major osteoporotic fracture 10% and of a hip fracture 1.6%. (T score greater or equal to -1.0 to: NORMAL) (T score from -1.1 to -2.4: OSTEOPENIA) (T score less than or equal to -2.5: OSTEOPOROSIS) IMPRESSION: 1. Osteopenia. Dictated by: Elvis Gao M.D. on 12/25/2023 at 22:08 Approved by: Elvis Gao M.D. on 12/25/2023 at 22:10
== END ==
PROVIDERS: Family Provider Obstetrics & Gynecology Gynecologic Oncology; PCP Registered Nurse; Referring Provider Registered Nurse; Visit Provider Registered Nurse
DX: M85.88 Other specified disorders of bone density and structure, other site (principal); Z13.820 Encounter for screening for osteoporosis; Z78.0 Asymptomatic menopausal state; E04.1 Nontoxic single thyroid nodule
CPT/HCPCS: 76536; 77080

== ENCOUNTER → 2024-06-13 09:33 | Outpatient (ROUT) | payer MEDICARE, OTHER, SELFPAY ==
[2024-06-13 09:42] LABS: INR 2.5 (0.9-1.3); Prothrombin Time 28.8 SECONDS (9.4-12.5)
[2024-06-13 09:45] LABS: PTT Partial Thromboplastin Tim 49 SECONDS (25.1-36.5)
== END ==
PROVIDERS: Family Provider Obstetrics & Gynecology Gynecologic Oncology; PCP Registered Nurse; Visit Provider Registered Nurse
DX: R17 Unspecified jaundice (principal); E03.2 Hypothyroidism due to medicaments and other exogenous substances
CPT/HCPCS: 85610; 85730

== ENCOUNTER → 2024-09-05 11:58 | Outpatient (ROUT) | payer MEDICARE, OTHER, SELFPAY ==
[2024-09-05 12:06] LABS: INR 2.3 (0.9-1.3); Prothrombin Time 25.3 SECONDS (9.4-12.5)
== END ==
PROVIDERS: Family Provider Obstetrics & Gynecology Gynecologic Oncology; PCP Registered Nurse; Visit Provider Registered Nurse
DX: I48.0 Paroxysmal atrial fibrillation (principal); Z79.01 Long term (current) use of anticoagulants
CPT/HCPCS: 85610

== ENCOUNTER → 2024-12-27 10:36 | Outpatient (ROUT) | payer MEDICARE, OTHER, SELFPAY ==
[2024-12-27 10:48] LABS: INR 1.1 (0.9-1.3); Prothrombin Time 12.1 SECONDS (9.4-12.5)
== END ==
LOC: LAB 10:36
PROVIDERS: Family Provider Obstetrics & Gynecology Gynecologic Oncology; PCP Registered Nurse; Visit Provider Registered Nurse
DX: I48.0 Paroxysmal atrial fibrillation (principal)
CPT/HCPCS: 85610

== ENCOUNTER → 2025-04-14 15:11 | Outpatient (ROUT) | payer MEDICARE, OTHER, SELFPAY ==
[2025-04-14 15:22] LABS: INR 1.3 (0.9-1.3); Prothrombin Time 14.6 SECONDS (9.4-12.5)
== END ==
PROVIDERS: Family Provider Obstetrics & Gynecology Gynecologic Oncology; PCP Registered Nurse; Visit Provider Registered Nurse
DX: I48.0 Paroxysmal atrial fibrillation (principal)
CPT/HCPCS: 85610

== ENCOUNTER → 2025-07-07 15:41 | Outpatient (ROUT) | payer MEDICARE, OTHER, SELFPAY ==
[2025-07-07 16:00] LABS: INR 1.1 (0.9-1.3); Prothrombin Time 12.8 SECONDS (9.4-12.5)
== END ==
PROVIDERS: Family Provider Obstetrics & Gynecology Gynecologic Oncology; PCP Registered Nurse; Visit Provider Registered Nurse
DX: I48.0 Paroxysmal atrial fibrillation (principal)
CPT/HCPCS: 85610